=== PATIENT | female | born 1965 | race Caucasian/White ===

== ENCOUNTER 2018-04-27 07:24 | Emergency (ER) | payer BC ==
[2018-04-27 07:39] VITALS: BP 98/65; PULSE 72; TEMP 99.2
--- NOTE | 2018-04-27 08:07 | PDOC ---
*Physical Exam - Vital Signs Last Vital Signs Temp Pulse Resp BP Pulse Ox 99.2 F 72 16 98/65 99 04/27/18 07:29 04/27/18 07:29 04/27/18 07:29 04/27/18 07:29 04/27/18 07:29 Medical Decision Making - Medical Decision Making 04/27/18 08:07 Pt seen by Midlevel Provider under my direct supervision I agree with plan as outlined by Midlevel Provider 04/27/18 10:43 *DC/Admit/Observation/Transfer Diagnosis at time of Disposition: Finger injury - Discharge Dispostion Disposition: HOME Condition at time of disposition: Good - Referrals - Patient Instructions Additional Instructions: keep clean and dry remove in 48hrs tylenol for pain - Post Discharge Activity
[2018-04-27] MEDS ORDERED: ACETAMINOPHEN 325 MG TABLET (FP) ONE (08:12)
--- NOTE | 2018-04-27 08:23 | PDOC ---
History of Present Illness - General Chief Complaint: Injury Stated Complaint: L HAND INJURY Time Seen by Provider: 04/27/18 07:54 Past History - Past Medical History Allergies/Adverse Reactions: Allergies Allergy/AdvReac Type Severity Reaction Status Date / Time erythromycin base Allergy Verified 04/27/18 07:29 Penicillins Allergy Verified 04/27/18 07:28 Home Medications: Ambulatory Orders NK [No Known Home Medication] 04/27/18 COPD: No - Suicide/Smoking/Psychosocial Hx Smoking History: Never smoked Information on smoking cessation initiated: No Hx Alcohol Use: No Drug/Substance Use Hx: No Trauma Specific PMHX - Complaint Specific PMHX Arthritis: No Back Injury: No Neck Injury: No Hx Sacro Iliac Joint Dysfunction: No Review of Systems - Review of Systems Able to Perform ROS?: Yes Is the patient limited Spanish proficient: No Constitutional: No: Symptoms Reported HEENTM: No: Symptoms Reported Respiratory: No: Symptoms reported Cardiac (ROS): No: Symptoms Reported ABD/GI: No: Symptoms Reported : No: Symptoms Reported Musculoskeletal: No: Symptoms Reported Integumentary: Yes: Symptoms Reported *Physical Exam - Vital Signs Last Vital Signs Temp Pulse Resp BP Pulse Ox 99.2 F 72 16 98/65 99 04/27/18 07:29 04/27/18 07:29 04/27/18 07:29 04/27/18 07:29 04/27/18 07:29 - Physical Exam General Appearance: Yes: Nourished, Appropriately Dressed HEENT: positive: EOMI, LINDSAY Extremity: positive: Normal Capillary Refill, Tender (left 4th digit with skin avulsion, partial nail avulsion to the tip ) Integumentary: positive: Normal Color, Dry, Warm Neurologic: positive: Fully Oriented, Alert, Normal Mood/Affect, Normal Response , Motor Strength 5/5 Procedures - Laceration/Wound Repair Left Distal Finger 4th digit Wound Length: to 2.5 cm Wound Explored: clean Wound's Depth, Shape: superficial, nail-avulsed (avulsed skin ) Betadine Prep: Yes Sterile Dressing Applied: Yes (surgicel gauze placed bulky finger dressing placed , pt tolerated well) Medical Decision Making - Medical Decision Making 04/27/18 08:33 cc: finger tip skin avulsion with vegetable rayo partial nail avulsion cuticle intact bleeding hemostasis achieved with surgicel gauze and bulky finger dressing nv intact tetanus given tylenol given *DC/Admit/Observation/Transfer Diagnosis at time of Disposition: Finger injury Qualifiers: Encounter type: initial encounter Laterality: left Qualified Code(s): S69.92XA - Unspecified injury of left wrist, hand and finger(s), initial encounter - Discharge Dispostion Disposition: HOME Condition at time of disposition: Good - Referrals - Patient Instructions Additional Instructions: keep clean and dry remove in 48hrs tylenol for pain - Post Discharge Activity
[2018-04-27] MEDS ORDERED: ACETAMINOPHEN 325 MG TABLET (FP) PO ONE (08:34)
[2018-04-27] MEDS ORDERED: DIPHTH,PERTUSS(ACELL),TET 0.5 ML DISP.SYRIN IM ONE (08:34)
== END 2018-04-27 08:47 | disposition home or self-care (01) ==
LOC: JER 07:24
PROC: 3E0234Z Introduction of Serum, Toxoid and Vaccine into Muscle, Percutaneous Approach (ICD-10-PCS; principal; 2018-04-27)
DX: S69.92XA Unspecified injury of left wrist, hand and finger(s), initial encounter (principal); X58.XXXA Exposure to other specified factors, initial encounter; Y93.89 Activity, other specified; Y92.9 Unspecified place or not applicable
CPT/HCPCS: 90715; 99281-25